=== PATIENT | female | born 1950 | race Caucasian/White ===

== ENCOUNTER → 2017-01-01 | Outpatient (CLI) | payer BC ==
[2016-01-12 22:00] VITALS: BP 104/55
--- NOTE | 2017-01-01 10:34 | KCIC ---
PROCEDURE MR of the right knee HISTORY Pain for about 1 year. Pain under the patella. There is some swelling. TECHNIQUE Standard noncontrast images are obtained. COMPARISON None FINDINGS Mild blunting and distortion of the posterior horn of the medial meniscus at the root. The medial meniscus body and posterior horn also appears small in size. No evidence of a lateral meniscal tear. Anterior and posterior cruciate ligaments are intact. Medial collateral ligament is intact. Iliotibial band unremarkable. Fibular collateral ligament, biceps femoris tendon and popliteus tendon are intact. Extensor mechanism is intact. No evidence of acute retinacular tear. Small joint effusion. No evidence of an osteochondral loose body. There is a small 50 percent deep narrow fissure of the median ridge of the patella, seen on 2 axial slices. Mild chondromalacia at the posterior lateral tibial plateau. Mild reactive or cystic type change at the proximal tibia. No significant bone lesion or acute fracture. No acute soft tissue injury. Small Chávez cyst There is some focal fatty signal just medial to the fibular neck, probably within the proximal soleus muscle, suggesting a small lipoma, measuring about 2.5 cm longitudinal. IMPRESSION 1. Small partial-thickness patellar cartilage fissure. 2. Mild blunting of the free margin of the posterior horn/root of the medial meniscus and overall small size of the medial meniscal body and posterior horn. Findings are compatible with a degenerative tear assuming there has not been prior meniscectomy. Electronically signed by: Himanshu Chan MD (Jan 01, 2017 10:32:29)
== END | disposition home or self-care (01) ==
LOC: KCIC MRI 07:52
PROVIDERS: ATTEND Orthopaedic Surgery
DX: M23.91 Unspecified internal derangement of right knee (principal)
CPT/HCPCS: 73721

== ENCOUNTER 2021-07-09 12:33 | Inpatient (IN) | payer MEDICARE, OTHER ==
[~2021-07-09] VITALS: Ht 170.2 cm; Wt 60.2 kg
[2021-07-09] MEDS ORDERED: IV NORMAL SALINE 1000ML BAG 1,000 ML IV ONE ×2 (13:00→21:00)
[2021-07-09] MEDS ORDERED: fentaNYL PF VIAL 100 MCG/2 ML VIAL IVP ONE (13:00)
[2021-07-09] MEDS ORDERED: NITROGLYCERIN SUBLINGUAL 0.4 MG BOTTLE OF 25. SL PRN ×2 (13:00→15:30)
[2021-07-09] MEDS ORDERED: ASPIRIN 325 MG TABLET PO ONE (13:00)
[2021-07-09] MEDS ORDERED: ACETAMINOPHEN 500 MG TABLET PO ONE (13:00)
[2021-07-09 13:08] LABS: HEMATOCRIT 23.5 % (36.0-47.0); HEMOGLOBIN 8.2 g/dL (12.0-15.5); MEAN CORPUSCULAR HEMOGLOBIN 34 pg (25-35); MEAN CORPUSCULAR HGB CONC 35 g/dL (31-37); MEAN CORPUSCULAR VOLUME 97 fL (79-100); PLATELET COUNT 99 x10^3/uL (140-400); RED BLOOD COUNT 2.42 x10^6/uL (3.50-5.40); RED CELL DISTRIBUTION WIDTH 13.2 % (11.5-14.5)
[2021-07-09 13:22] LABS: CALCIUM 8.8 mg/dL (8.5-10.1); CREATININE 0.7 mg/dL (0.6-1.0); POTASSIUM 3.4 mmol/L (3.5-5.1)
[2021-07-09 13:27] LABS: ALBUMIN 3.1 g/dL (3.4-5.0); MAGNESIUM 1.8 mg/dL (1.8-2.4); TOTAL BILIRUBIN 0.6 mg/dL (0.2-1.0); TOTAL PROTEIN 6.1 g/dL (6.4-8.2)
--- NOTE | 2021-07-09 13:28 | PHYS DOC ---
Past Medical History Past Medical History: Cancer (left breast cancer), Hypothyroid Additional Past Medical Histor: breast cancer Past Surgical History: Hysterectomy, Other Additional Past Surgical Histo: Left lumpectomy Smoking Status: Never Smoker Alcohol Use: None Drug Use: None General Adult EDM: Chief Complaint: CHEST PAIN HPI: HPI: Patient is a 70 year old female with a history of left breast cancer currently on chemo plus treatment was approximately 2 weeks ago who presents to the ED today with multiple complaints. Patient is complaining of generalized weakness, shortness of breath, poor appetite, generalized headache, generalized chest pain, unable to rate or describe any of her symptoms. She states everything is starting, symptoms for 3 days. Denies any fever, coughing or congestion. Review of Systems: Review of Systems: Constitutional: Reports generalized weakness, denies fever or chills. [] Eyes: Denies change in visual acuity. [] HENT: Denies nasal congestion or sore throat. [] Respiratory: Reports shortness of breath denies coughing Cardiovascular: Reports chest pain GI: Denies abdominal pain, nausea, vomiting, bloody stools or diarrhea. [] : Denies dysuria. [] Musculoskeletal: Denies back pain or joint pain. [] Integument: Denies rash. [] Neurologic: Reports headache, denies focal weakness or sensory changes. [] Psychiatric: Denies depression or anxiety. [] Heart Score: C/O Chest Pain: Yes HEART Score for Chest Pain: HEART Score for Chest Pain Response (Comments) Value History Slighlty/Non-Suspicious 0 ECG Normal 0 Age > 65 2 Risk Factors No Risk Factors 0 Troponin < Normal Limit 0 Total 2 Risk Factors: Risk Factors: DM, Current or recent (<one month) smoker, HTN, HLP, family history of CAD, obesity. Risk Scores: Score 0 - 3: 2.5% MACE over next 6 weeks - Discharge Home Score 4 - 6: 20.3% MACE over next 6 weeks - Admit for Clinical Observation Score 7 - 10: 72.7% MACE over next 6 weeks - Early Invasive Strategies Current Medications: Current Medications Medications (Trade) Dose Ordered Sig/Zenon Start Time Stop Time Status Last Admin Dose Admin Acetaminophen (Tylenol) 1,000 mg 1X ONCE 07/09/21 13:00 07/09/21 13:01 DC Aspirin (Makayla Aspirin) 325 mg 1X ONCE 07/09/21 13:00 07/09/21 13:01 DC Fentanyl Citrate (Fentanyl 2ml Vial) 50 mcg 1X ONCE 07/09/21 13:00 07/09/21 13:01 DC Nitroglycerin (Nitrostat) 0.4 mg PRN Q5MIN PRN 07/09/21 13:00 07/10/21 12:59 Sodium Chloride 1,000 ml @ 1,000 mls/hr 1X ONCE 07/09/21 13:00 07/09/21 13:59 Allergies: Allergies: Allergies Coded Allergies Type Severity Reaction Last Updated Verified codeine Allergy Intermediate 01/12/16 Yes Physical Exam: PE: Constitutional: Well developed, well nourished, no acute distress, non-toxic appearance. [] HENT: Normocephalic, atraumatic, bilateral external ears normal, oropharynx moist, no oral exudates, nose normal. [] Eyes: PERRLA, EOMI, conjunctiva normal, no discharge. [] Neck: Normal range of motion, no tenderness, supple, no stridor. [] Cardiovascular:Heart rate regular rhythm, no murmur [] Lungs & Thorax: Bilateral breath sounds clear to auscultation [] Abdomen: Bowel sounds normal, soft, no tenderness, no masses, no pulsatile masses. [] Skin: Warm, dry, no erythema, no rash. [] Back: No tenderness, no CVA tenderness. [] Extremities: No tenderness, no cyanosis, no clubbing, ROM intact, no edema. [] Neurologic: Alert and oriented X 3, normal motor function, normal sensory function, no focal deficits noted. [] Psychologic: Affect normal, judgement normal, mood normal. [] Current Patient Data: Labs: Laboratory Tests Test 07/09/21 12:45 White Blood Count 0.2 x10^3/uL (4.0-11.0) *L Red Blood Count 2.42 x10^6/uL (3.50-5.40) L Hemoglobin 8.2 g/dL (12.0-15.5) L Hematocrit 23.5 % (36.0-47.0) L Mean Corpuscular Volume 97 fL (79-100) Mean Corpuscular Hemoglobin 34 pg (25-35) Mean Corpuscular Hemoglobin Concent 35 g/dL (31-37) Red Cell Distribution Width 13.2 % (11.5-14.5) Platelet Count 99 x10^3/uL (140-400) L Platelet Estimate Pending Laboratory Tests 07/09/21 12:45 Vital Signs: Vital Signs Date Time Temp Pulse Resp B/P (MAP) Pulse Ox O2 Delivery O2 Flow Rate FiO2 07/09/21 12:34 99.9 81 24 117/64 (71) 99 Room Air 99.9 EKG: EK interpreted by Dr. Monroe sinus rhythm heart rate 85 no STEMI [] Radiology/Procedures: Radiology/Procedures: []PROCEDURE: CT ANGIOGRAPHY CHEST Exam Date: 07/09/2021 1:28 PM CTA CHEST Indication: Reason: shortness of breath / Spl. Instructions: OMNI 350 INJ 100 MLS / History: . TECHNIQUE: CT angiogram of the chest was performed following the administration of nonionic intravenous contrast for evaluation of pulmonary embolus. 3D MIPs were created and reviewed on an independent workstation to assist in diagnosis and clinical management. One or more of the following dose reduction techniques were utilized: *Automated exposure control (AEC) *Adjustment of mA and/or kV according to patient size *Use of iterative reconstruction technique *CT scan done according to ALARA, or ALARA/IMAGE GENTLY FINDINGS: There is adequate opacification of the pulmonary arteries. No central intravascular filling defects are appreciated. There is no evidence for central pulmonary embolus. The aorta is normal in caliber without evidence for dissection. Aortic calcifications are present. The heart is normal in size without pericardial effusion. No lymphadenopathy is seen. The central airways are patent. There is no focal consolidation, pleural effusion or pneumothorax. Biapical scarring is noted. Images of the upper abdomen demonstrate no focal abnormality. Degenerative changes are seen in the spine. IMPRESSION: No evidence for central pulmonary embolus. Electronically signed by: Maria L Kaye MD (07/09/2021 2:31 PM) [facility] DICTATED and SIGNED BY: MARIA L KAYE MD DATE: 07/09/21 [id number] 0 Course & Med Decision Making: Course & Med Decision Making Pertinent Labs and Imaging studies reviewed. (See chart for details) This is a 70-year-old female patient currently on chemotherapy for breast cancer last treatment 2 weeks ago presenting today complaining of generalized weakness, headache, shortness of breath, chest pain, symptoms for 3 days. Labs in the ED with a temperature of 99.9, heart rate 18, respiration 24 on room air, O2 sats 99%, blood pressure 117/64. CTA chest is negative. CBC with a WBC of 0.2, patient was put on neutropenic precautions. Hemoglobin 8.2 hematocrit 23.5. Lactic is normal. UA pending. Negative rapid Covid test Spoke with Dr. Pierre who accepted patient for admission routine consult placed for oncology Dragon Disclaimer: Dragon Disclaimer: This electronic medical record was generated, in whole or in part, using a voice recognition dictation system. Departure Departure Impression: Primary Impression: Fever Qualified Codes: R50.9 - Fever, unspecified Additional Impressions: Shortness of breath Chest pain Qualified Codes: R07.9 - Chest pain, unspecified Generalized weakness Neutropenia Qualified Codes: D70.9 - Neutropenia, unspecified Disposition: ADMITTED INPATIENT Condition: STABLE Referrals: RUEL AC MD (PCP) BERTIN MCLEAN [employer] Jul 09, 2021 13:27
[2021-07-09] MEDS ORDERED: IOHEXOL 350 MG/ML 100 ML VIAL. IV ONE (13:30)
[2021-07-09] MEDS ORDERED: CONTRAST GIVEN. MC PRN (13:30)
[2021-07-09 13:36] LABS: CREATINE KINASE 14 U/L (26-192)
--- NOTE | 2021-07-09 14:34 | RAD ---
Exam Date: 07/09/2021 1:28 PM CTA CHEST Indication: Reason: shortness of breath / Spl. Instructions: OMNI 350 INJ 100 MLS / History: . TECHNIQUE: CT angiogram of the chest was performed following the administration of nonionic intrave nous contrast for evaluation of pulmonary embolus. 3D MIPs were created and reviewed on an [employer] workstation to assist in diagnosis and clinical management. One or more of the following dose red uction techniques were utilized: *Automated exposure control (AEC) *Adjustment of mA and/or kV according to patient size *Use of iterative reconstruction technique *CT scan done according to ALARA, or ALARA/IMAGE GENTLY FINDINGS: There is adequate opacification of the pulmonary arteries. No central intravascular filling defects are appreciated. There is no evidence for central pulmonary embolus. The aorta is normal in caliber without evidence for dissection. Aortic calcifications are present. The heart is normal in size without pericardial effusion. No lymphadenopathy is seen. The central airways are patent. There is no focal consolidation, pleural effusion or pneumothorax. Biapical scarring is noted. Images of the upper abdomen demonstrate no focal abnormality. Degenerative changes are seen in the s pine. IMPRESSION: No evidence for central pulmonary embolus. Electronically signed by: Endy Kaye MD (07/09/2021 2:31 PM) [facility]
[2021-07-09 14:51] LABS: WHITE BLOOD COUNT 0.2 x10^3/uL (4.0-11.0)
[2021-07-09] MEDS ORDERED: ACETAMINOPHEN 325 MG TABLET. PO PRN (15:30)
[2021-07-09] MEDS ORDERED: ONDANSETRON PF 4 MG/2 ML VIAL. IVP PRN (15:30)
[2021-07-09] MEDS ORDERED: fentaNYL PF VIAL 100 MCG/2 ML VIAL IVP PRN (15:30)
[2021-07-09 16:31] LABS: BILIRUBIN,URINE NEGATIVE (NEG); CLARITY,URINE CLEAR; COLOR,URINE YELLOW; NITRITE,URINE NEGATIVE (NEG); PROTEIN,URINE NEGATIVE (NEG-TRACE); UROBILINOGEN,URINE 0.2 mg/dL (0.2 mg/dL)
[2021-07-09 16:38] LABS: BACTERIA,URINE 0 /HPF (0-FEW); RBC,URINE 0 /HPF (0-2); WBC,URINE 0 /HPF (0-4)
[2021-07-09 17:09] VITALS: BP 91/44
[2021-07-09] MEDS ORDERED: oxyCODONE/APAP 5/325 1 TAB TABLET PO PRN (17:15)
--- NOTE | 2021-07-09 18:48 | PDOC1 ---
History and Physical Date of Admission Date of Admission DATE: 07/09/21 TIME: 18:47 Source Source: Chart review, Patient History of Present Illness History of Present Illness Ms. Saunders is a 70 year old female admit with weakness and lethargy She has a history of left breast cancer currently on chemo plus treatment 9 days ago who presents to the ED today. she reports lumpectomy surgery and triple negattive status of her cancer. today she has shortness of breath, poor appetite, generalized headache, generalized chest pain. she is hungry as she hasnt eaten much today besides oatmeal and would like some spicy or [place] food. She has lost 10 lbs unintentionally with her cancer due to poo rintake these recent symptoms for 3 days. Denies any fever, she doesnt think she could have COVID becuase she has been careful and is vaccinated, but has mult appts at Cancer center Past Medical History Cardiovascular: No pertinent hx Heme/Onc: Cancer Past Surgical History Past Surgical History: No pertinent history Family History Family History: No Significant Social History Smoke: No ALCOHOL: none Drugs: None Current Problem List Problem List Problems Medical Problems: (1) Chest pain Status: Acute (2) Fever Status: Acute (3) Generalized weakness Status: Acute (4) Neutropenia Status: Acute (5) Shortness of breath Status: Acute Current Medications Current Medications Current Medications Aspirin (Makayla Aspirin) 325 mg 1X ONCE PO Last administered on 07/09/21at 13:47; Start 07/09/21 at 13:00; Stop 07/09/21 at 13:01; Status DC Nitroglycerin (Nitrostat) 0.4 mg PRN Q5MIN PRN SL CP RATING > 1/10; Start 07/09/21 at 13:00; Stop 07/10/21 at 12:59 Fentanyl Citrate (Fentanyl 2ml Vial) 50 mcg 1X ONCE IVP Last administered on 07/09/21at 13:48; Start 07/09/21 at 13:00; Stop 07/09/21 at 13:01; Status DC Acetaminophen (Tylenol) 1,000 mg 1X ONCE PO Last administered on 07/09/21at 13:47; Start 07/09/21 at 13:00; Stop 07/09/21 at 13:01; Status DC Sodium Chloride 1,000 ml @ 1,000 mls/hr 1X ONCE IV Last administered on at 13:51; Start 07/09/21 at 13:00; Stop 07/09/21 at 13:59; Status DC Iohexol (Omnipaque 350 Mg/ml) 100 ml 1X ONCE IV Last administered on 07/09/21at 14:00; Start 07/09/21 at 13:30; Stop 07/09/21 at 13:31; Status DC Info (CONTRAST GIVEN -- Rx MONITORING) 1 each PRN DAILY PRN MC SEE COMMENTS; Start 07/09/21 at 13:30; Stop 07/11/21 at 13:29 Ondansetron HCl (Zofran) 4 mg PRN Q8HRS PRN IVP NAUSEA/VOMITING; Start 07/09/21 at 15:30; Stop 07/10/21 at 15:29 Fentanyl Citrate (Fentanyl 2ml Vial) 50 mcg PRN Q1HR PRN IVP PAIN; Start 07/09/21 at 15:30; Stop 07/10/21 at 15:29 Acetaminophen (Tylenol) 650 mg PRN Q4HRS PRN PO FEVER > 100.3'F; Start 07/09/21 at 15:30; Stop 07/10/21 at 15:29 Nitroglycerin (Nitrostat) 0.4 mg PRN Q5MIN PRN SL CHEST PAIN; Start 07/09/21 at 15:30; Stop 07/10/21 at 15:29 Oxycodone/ Acetaminophen (Percocet 5/325) 1 tab PRN Q4HRS PRN PO PAIN; Start 07/09/21 at 17:15 Allergies Allergies: Coded Allergies: codeine (Verified Allergy, Intermediate, 01/12/16) ROS General: YES: Chills, Fatigue, Malaise PSYCHOLOGICAL ROS: No: Anxiety, Behavioral Disorder, Concentration difficultie, Decreased libido, Depression, Disorientation, Hallucinations, Hostility, Irritablity, Memory difficulties, Mood Swings, Obsessive thoughts, Physical abuse, Sexual abuse, Sleep disturbances, Suicidal ideation, Other Eyes: No Blurry vision, No Decreased vision, No Double vision, No Dry eyes, No Excessive tearing, No Eye Pain, No Itchy Eyes, No Loss of vision, No Photophobia, No Scotomata, No Uses contacts, No Uses glasses, No Other HEENT: YES: Heacaches; No: Visual Changes, Hearing change, Nasal congestion, Nasal discharge, Oral lesions, Sinus pain, Sore Throat, Epistaxis, Sneezing, Snoring, Tinnitus, Vertigo, Vocal changes, Other Respiratory: No: Cough, Hemoptysis, Orthopnea, Pleuritic Pain, Shortness of breath, SOB with excertion, Sputum Changes, Stridor, Tachypnea, Wheezing, Other Cardiovascular: No Chest Pain, No Palpitations, No Orthopnea, No Paroxysmal Noc. Dyspnea, No Edema, No Lt Headedness, No Other Gastrointestinal: Yes Nausea Genitourinary: No Dysuria, No Frequency, No Incontinence, No Hematuria, No Retention, No Discharge, No Urgency, No Pain, No Flank Pain, No Other, No , No , No , No , No , No , No Musculoskeletal: Yes Joint Stiffness; No Gait Disturbance, No Joint Pain, No Joint Swelling, No Muscle Pain, No Muscular Weakness, No Pain In:, No Swelling In:, No Other Neurological: No Behavorial Changes, No Bowel/Bladder ControlChng, No Confusion, No Dizziness, No Gait Disturbance, No Headaches, No Impaired Coord/balance, No Memory Loss, No Numbness/Tingling, No Seizures, No Speech Problems, No Tremors, No Visual Changes, No Weakness, No Other Skin: No Dry Skin, No Eczema, No Hair Changes, No Lumps, No Mole Changes, No Mottling, No Nail Changes, No Pruritus, No Rash, No Skin Lesion Changes, No Other, No Acne Physical Exam General: Alert, Oriented X3, No acute distress HEENT: Atraumatic, Mucous membr. moist/pink Lungs: Normal air movement Abdomen: Normal bowel sounds, Soft Extremities: No edema Skin: No rashes, No significant lesion Neuro: Normal speech, Normal tone Psych/Mental Status: Mental status NL, Mood NL Vitals Vitals Vital Signs Date Time Temp Pulse Resp B/P (MAP) Pulse Ox O2 Delivery O2 Flow Rate FiO2 07/09/21 17:09 99.4 77 18 91/44 (60) 99 Room Air 99.4 Labs Labs Laboratory Tests Test 07/09/21 12:45 07/09/21 14:25 07/09/21 15:40 White Blood Count 0.2 x10^3/uL (4.0-11.0) Red Blood Count 2.42 x10^6/uL (3.50-5.40) Hemoglobin 8.2 g/dL (12.0-15.5) Hematocrit 23.5 % (36.0-47.0) Mean Corpuscular Volume 97 fL (79-100) Mean Corpuscular Hemoglobin 34 pg (25-35) Mean Corpuscular Hemoglobin Concent 35 g/dL (31-37) Red Cell Distribution Width 13.2 % (11.5-14.5) Platelet Count 99 x10^3/uL (140-400) Sodium Level 135 mmol/L (136-145) Potassium Level 3.4 mmol/L (3.5-5.1) Chloride Level 102 mmol/L (98-107) Carbon Dioxide Level 25 mmol/L (21-32) Anion Gap 8 (6-14) Blood Urea Nitrogen 9 mg/dL (7-20) Creatinine 0.7 mg/dL (0.6-1.0) Estimated GFR (Cockcroft-Gault) 83.0 BUN/Creatinine Ratio 13 (6-20) Glucose Level 98 mg/dL (70-99) Lactic Acid Level 1.4 mmol/L (0.4-2.0) Calcium Level 8.8 mg/dL (8.5-10.1) Magnesium Level 1.8 mg/dL (1.8-2.4) Total Bilirubin 0.6 mg/dL (0.2-1.0) Aspartate Amino Transf (AST/SGOT) 8 U/L (15-37) Alanine Aminotransferase (ALT/SGPT) 23 U/L (14-59) Alkaline Phosphatase 89 U/L (46-116) Creatine Kinase 14 U/L (26-192) Creatine Kinase MB (Mass) < 0.5 ng/mL (0.0-3.6) Creatine Kinase MB Relative Index % (0-4) Troponin I Quantitative < 0.017 ng/mL (0.000-0.055) MB-Rgq-Y-Type Natriuretic Peptide 314 pg/mL (0-124) Total Protein 6.1 g/dL (6.4-8.2) Albumin 3.1 g/dL (3.4-5.0) Albumin/Globulin Ratio 1.0 (1.0-1.7) Procalcitonin < 0.10 ng/mL (0.00-0.10) SARS-CoV-2 Antigen (Rapid) Negative (NEGATIVE) Urine Collection Type Unknown Urine Color Yellow Urine Clarity Clear Urine pH 8.0 (<5.0-8.0) Urine Specific [place] 1.025 (1.000-1.030) Urine Protein Negative mg/dL (NEG-TRACE) Urine Glucose (UA) Negative mg/dL (NEG) Urine Ketones (Stick) Negative mg/dL (NEG) Urine Blood Negative (NEG) Urine Nitrite Negative (NEG) Urine Bilirubin Negative (NEG) Urine Urobilinogen Dipstick 0.2 mg/dL (0.2 mg/dL) Urine Leukocyte Esterase Negative (NEG) Urine RBC 0 /HPF (0-2) Urine WBC 0 /HPF (0-4) Urine Squamous Epithelial Cells Few /LPF Urine Bacteria 0 /HPF (0-FEW) Laboratory Tests Test 07/09/21 12:45 07/09/21 14:25 07/09/21 15:40 White Blood Count 0.2 x10^3/uL (4.0-11.0) Red Blood Count 2.42 x10^6/uL (3.50-5.40) Hemoglobin 8.2 g/dL (12.0-15.5) Hematocrit 23.5 % (36.0-47.0) Mean Corpuscular Volume 97 fL (79-100) Mean Corpuscular Hemoglobin 34 pg (25-35) Mean Corpuscular Hemoglobin Concent 35 g/dL (31-37) Red Cell Distribution Width 13.2 % (11.5-14.5) Platelet Count 99 x10^3/uL (140-400) Sodium Level 135 mmol/L (136-145) Potassium Level 3.4 mmol/L (3.5-5.1) Chloride Level 102 mmol/L (98-107) Carbon Dioxide Level 25 mmol/L (21-32) Anion Gap 8 (6-14) Blood Urea Nitrogen 9 mg/dL (7-20) Creatinine 0.7 mg/dL (0.6-1.0) Estimated GFR (Cockcroft-Gault) 83.0 BUN/Creatinine Ratio 13 (6-20) Glucose Level 98 mg/dL (70-99) Lactic Acid Level 1.4 mmol/L (0.4-2.0) Calcium Level 8.8 mg/dL (8.5-10.1) Magnesium Level 1.8 mg/dL (1.8-2.4) Total Bilirubin 0.6 mg/dL (0.2-1.0) Aspartate Amino Transf (AST/SGOT) 8 U/L (15-37) Alanine Aminotransferase (ALT/SGPT) 23 U/L (14-59) Alkaline Phosphatase 89 U/L (46-116) Creatine Kinase 14 U/L (26-192) Creatine Kinase MB (Mass) < 0.5 ng/mL (0.0-3.6) Creatine Kinase MB Relative Index % (0-4) Troponin I Quantitative < 0.017 ng/mL (0.000-0.055) YQ-Ulx-C-Type Natriuretic Peptide 314 pg/mL (0-124) Total Protein 6.1 g/dL (6.4-8.2) Albumin 3.1 g/dL (3.4-5.0) Albumin/Globulin Ratio 1.0 (1.0-1.7) Procalcitonin < 0.10 ng/mL (0.00-0.10) SARS-CoV-2 Antigen (Rapid) Negative (NEGATIVE) Urine Collection Type Unknown Urine Color Yellow Urine Clarity Clear Urine pH 8.0 (<5.0-8.0) Urine Specific [place] 1.025 (1.000-1.030) Urine Protein Negative mg/dL (NEG-TRACE) Urine Glucose (UA) Negative mg/dL (NEG) Urine Ketones (Stick) Negative mg/dL (NEG) Urine Blood Negative (NEG) Urine Nitrite Negative (NEG) Urine Bilirubin Negative (NEG) Urine Urobilinogen Dipstick 0.2 mg/dL (0.2 mg/dL) Urine Leukocyte Esterase Negative (NEG) Urine RBC 0 /HPF (0-2) Urine WBC 0 /HPF (0-4) Urine Squamous Epithelial Cells Few /LPF Urine Bacteria 0 /HPF (0-FEW) VTE Prophylaxis Ordered VTE Prophylaxis Devices: No VTE Pharmacological Prophylaxi: Yes Assessment/Plan Assessment/Plan lethargy, weakness, admit for COVId - PUI rule out neutropenia, s/p chemo for breast cancer relative hypotension, IV fluid given, will continue Justifications for Admission Other Justification DELROY ANDRADE MD Jul 09, 2021 18:47
[2021-07-09 19:29] VITALS: BP 85/40
[2021-07-09] MEDS ORDERED: POTASSIUM CHLORIDE 20 MEQ TABLET.ER. PO ONE (21:00)
--- NOTE | 2021-07-09 21:22 | NUR ---
RECEIVED ORDER FROM DR ANDRADE FOR PREPERATION H, PER PT REQUEST. LCRN
[2021-07-09 22:27] VITALS: BP 101/48
[2021-07-09] MEDS: PHENYLEPH/MINERAL OIL/PETROLAT RECTAL OINTMENT TUBE. RC PRN (23:15)
[2021-07-09] MEDS: ENOXAPARIN 40 MG/0.4 ML SYRINGE. SQ SCH (23:37)
[2021-07-10 03:02] VITALS: BP 111/56
[2021-07-10 06:44] LABS: BASO % 0 % (0-3); EOS % 2 % (0-3); LYMPH # 0.1 x10^3/uL (1.0-4.8); LYMPH % 70 % (24-48); MEAN CORPUSCULAR HEMOGLOBIN 35 pg (25-35); MEAN CORPUSCULAR HGB CONC 35 g/dL (31-37); MEAN CORPUSCULAR VOLUME 98 fL (79-100); MONO % 11 % (0-9); NEUT % 17 % (31-73); PLATELET COUNT 64 x10^3/uL (140-400); RED BLOOD COUNT 2.02 x10^6/uL (3.50-5.40)
[2021-07-10 07:00] VITALS: BP 106/50
[2021-07-10 07:06] LABS: ALBUMIN 2.4 g/dL (3.4-5.0); ALBUMIN/GLOBULIN RATIO 0.9 (1.0-1.7); CALCIUM 7.9 mg/dL (8.5-10.1); CREATININE 0.6 mg/dL (0.6-1.0); GFR 99.1; POTASSIUM 3.6 mmol/L (3.5-5.1); TOTAL BILIRUBIN 0.3 mg/dL (0.2-1.0); TOTAL PROTEIN 5.1 g/dL (6.4-8.2)
[2021-07-10 07:30] LABS: HEMATOCRIT 19.7 % (36.0-47.0)
[2021-07-10 07:31] LABS: WHITE BLOOD COUNT 0.2 x10^3/uL (4.0-11.0)
[2021-07-10 10:39] VITALS: BP 104/53
[2021-07-10] MEDS ORDERED: DOCUSATE SODIUM 100 MG CAPSULE. PO PRN (11:00)
[2021-07-10] MEDS ORDERED: POLYETHYLENE GLYCOL 3350 17 GM PACKET. PO PRN (11:00)
[2021-07-10] MEDS ORDERED: IBUPROFEN 200 MG TABLET. PO ONE (12:15)
--- NOTE | 2021-07-10 12:48 | PDOC ---
[facility] PROGRESS NOTE Date of Service DOS: DATE: 07/10/21 TIME: 12:44 Chief Complaint Chief Complaint lethargy, weakness, SIRS, sepsis, neutropenia, with fevert this AM, start cefepime, IV , s/p chemo for breast cancer, now wiht pancytopenia, post plantinum chemo hypotension, better rectal pain, constipation and hemorrhoid pain weakness, was PUI for COVID, is negative, History of Present Illness History of Present Illness was very cold thsi AM, she reports this is usual for her after chemo, but temp 100.3, white count still terrible, got neupogen last week, will consutl heme, may benefit from other dose, cefepime started bowel regimen and roid cream and tucks pads Vitals/I&O Vitals/I&O: Vital Signs Date Time Temp Pulse Resp B/P (MAP) Pulse Ox O2 Delivery O2 Flow Rate FiO2 07/10/21 10:39 99.7 90 16 104/53 (70) 98 Room Air 99.7 I & O 07/09/21 07/09/21 07/10/21 15:00 23:00 07:00 Intake Total 200 ml 0 ml Output Total 800 ml 300 ml Balance -600 ml -300 ml Physical Exam General: Alert, Oriented X3, Cooperative, mild distress Heart: Regular rate Abdomen: Normal bowel sounds, Soft Extremities: No edema Skin: No rashes, No significant lesion Labs Labs: Laboratory Tests Test 07/09/21 12:45 07/09/21 14:25 07/09/21 15:40 07/10/21 05:30 White Blood Count 0.2 x10^3/uL (4.0-11.0) 0.2 x10^3/uL (4.0-11.0) Red Blood Count 2.42 x10^6/uL (3.50-5.40) 2.02 x10^6/uL (3.50-5.40) Hemoglobin 8.2 g/dL (12.0-15.5) 7.0 g/dL (12.0-15.5) Hematocrit 23.5 % (36.0-47.0) 19.7 % (36.0-47.0) Mean Corpuscular Volume 97 fL (79-100) 98 fL (79-100) Mean Corpuscular Hemoglobin 34 pg (25-35) 35 pg (25-35) Mean Corpuscular Hemoglobin Concent 35 g/dL (31-37) 35 g/dL (31-37) Red Cell Distribution Width 13.2 % (11.5-14.5) 14.0 % (11.5-14.5) Platelet Count 99 x10^3/uL (140-400) 64 x10^3/uL (140-400) Sodium Level 135 mmol/L (136-145) 135 mmol/L (136-145) Potassium Level 3.4 mmol/L (3.5-5.1) 3.6 mmol/L (3.5-5.1) Chloride Level 102 mmol/L (98-107) 105 mmol/L (98-107) Carbon Dioxide Level 25 mmol/L (21-32) 23 mmol/L (21-32) Anion Gap 8 (6-14) 7 (6-14) Blood Urea Nitrogen 9 mg/dL (7-20) 6 mg/dL (7-20) Creatinine 0.7 mg/dL (0.6-1.0) 0.6 mg/dL (0.6-1.0) Estimated GFR (Cockcroft-Gault) 83.0 99.1 BUN/Creatinine Ratio 13 (6-20) 10 (6-20) Glucose Level 98 mg/dL (70-99) 100 mg/dL (70-99) Lactic Acid Level 1.4 mmol/L (0.4-2.0) Calcium Level 8.8 mg/dL (8.5-10.1) 7.9 mg/dL (8.5-10.1) Magnesium Level 1.8 mg/dL (1.8-2.4) Total Bilirubin 0.6 mg/dL (0.2-1.0) 0.3 mg/dL (0.2-1.0) Aspartate Amino Transf (AST/SGOT) 8 U/L (15-37) 17 U/L (15-37) Alanine Aminotransferase (ALT/SGPT) 23 U/L (14-59) 29 U/L (14-59) Alkaline Phosphatase 89 U/L (46-116) 84 U/L (46-116) Creatine Kinase 14 U/L (26-192) Creatine Kinase MB (Mass) < 0.5 ng/mL (0.0-3.6) Creatine Kinase MB Relative Index % (0-4) Troponin I Quantitative < 0.017 ng/mL (0.000-0.055) AN-Mxf-T-Type Natriuretic Peptide 314 pg/mL (0-124) Total Protein 6.1 g/dL (6.4-8.2) 5.1 g/dL (6.4-8.2) Albumin 3.1 g/dL (3.4-5.0) 2.4 g/dL (3.4-5.0) Albumin/Globulin Ratio 1.0 (1.0-1.7) 0.9 (1.0-1.7) Procalcitonin < 0.10 ng/mL (0.00-0.10) SARS-CoV-2 RNA (PARAMJIT) Negative (Negative) SARS-CoV-2 Antigen (Rapid) Negative (NEGATIVE) Urine Collection Type Unknown Urine Color Yellow Urine Clarity Clear Urine pH 8.0 (<5.0-8.0) Urine Specific [place] 1.025 (1.000-1.030) Urine Protein Negative mg/dL (NEG-TRACE) Urine Glucose (UA) Negative mg/dL (NEG) Urine Ketones (Stick) Negative mg/dL (NEG) Urine Blood Negative (NEG) Urine Nitrite Negative (NEG) Urine Bilirubin Negative (NEG) Urine Urobilinogen Dipstick 0.2 mg/dL (0.2 mg/dL) Urine Leukocyte Esterase Negative (NEG) Urine RBC 0 /HPF (0-2) Urine WBC 0 /HPF (0-4) Urine Squamous Epithelial Cells Few /LPF Urine Bacteria 0 /HPF (0-FEW) Neutrophils (%) (Auto) 17 % (31-73) Lymphocytes (%) (Auto) 70 % (24-48) Monocytes (%) (Auto) 11 % (0-9) Eosinophils (%) (Auto) 2 % (0-3) Basophils (%) (Auto) 0 % (0-3) Neutrophils # (Auto) 0.0 x10^3/uL (1.8-7.7) Lymphocytes # (Auto) 0.1 x10^3/uL (1.0-4.8) Monocytes # (Auto) 0.0 x10^3/uL (0.0-1.1) Eosinophils # (Auto) 0.0 x10^3/uL (0.0-0.7) Basophils # (Auto) 0.0 x10^3/uL (0.0-0.2) Review of Systems Review of Systems: rectal pain weakness, poor po intake cold, not rigors, + chills Assessment and Plan Assessmemt and Plan Problems Medical Problems: (1) Chest pain Status: Acute (2) Fever Status: Acute (3) Generalized weakness Status: Acute (4) Neutropenia Status: Acute (5) Shortness of breath Status: Acute Comment Review of Relevant I have reviewed the following items jozef (where applicable) has been applied. Medications: Current Medications Medications (Trade) Dose Ordered Sig/Zenon Route PRN Reason Start Time Stop Time Status Last Admin Dose Admin Aspirin (Makayla Aspirin) 325 mg 1X ONCE PO 07/09/21 13:00 07/09/21 13:01 DC 07/09/21 13:47 Fentanyl Citrate (Fentanyl 2ml Vial) 50 mcg 1X ONCE IVP 07/09/21 13:00 07/09/21 13:01 DC 07/09/21 13:48 Acetaminophen (Tylenol) 1,000 mg 1X ONCE PO 07/09/21 13:00 07/09/21 13:01 DC 07/09/21 13:47 Sodium Chloride 1,000 ml @ 1,000 mls/hr 1X ONCE IV 07/09/21 13:00 07/09/21 13:59 DC 07/09/21 13:51 Iohexol (Omnipaque 350 Mg/ml) 100 ml 1X ONCE IV 07/09/21 13:30 07/09/21 13:31 DC 07/09/21 14:00 Sodium Chloride 1,000 ml @ 100 mls/hr 1X ONCE IV 07/09/21 21:00 07/10/21 07:00 DC 07/09/21 23:39 Potassium Chloride (Klor-Con) 40 meq 1X ONCE PO 07/09/21 21:00 07/09/21 21:01 DC 07/09/21 23:36 Enoxaparin Sodium (Lovenox 40mg Syringe) 40 mg Q24H SQ 07/09/21 21:00 07/09/21 23:37 Phenyleph/Shark Oil/Min Oil/Petrol (Preparation H) 1 giancarlo PRN QID PRN RC RECTAL PAIN 07/09/21 23:00 07/09/21 23:15 Ibuprofen (Motrin) 600 mg 1X ONCE PO 07/10/21 12:15 07/10/21 12:16 DC 07/10/21 12:13 Justifications for Admission Other Justification DELROY ANDRADE MD Jul 10, 2021 12:48
[2021-07-10] MEDS: POLYETHYLENE GLYCOL 3350 17 GM PACKET. PO SCH (13:13)
[2021-07-10] MEDS: FILGRASTIM 300 MCG/ML SQ SCH (13:13)
[2021-07-10] MEDS: CEFEPIME HCL IV Push 2 GM VIAL. IVP SCH ×2 (13:14→21:20)
[2021-07-10] MEDS: DOCUSATE SODIUM 100 MG CAPSULE. PO SCH (13:14)
[2021-07-10 15:00] VITALS: BP 101/55
[2021-07-10 19:20] VITALS: BP 124/56
[2021-07-10] MEDS: IBUPROFEN 400 MG TABLET. PO PRN (21:19)
[2021-07-10] MEDS: ENOXAPARIN 40 MG/0.4 ML SYRINGE. SQ SCH (21:19)
[2021-07-10 22:49] VITALS: BP 111/45
[2021-07-11 03:12] VITALS: BP 99/45
[2021-07-11 07:00] VITALS: BP 86/49
[2021-07-11 07:32] LABS: BASO % 3 % (0-3); EOS % 0 % (0-3); HEMATOCRIT 21.5 % (36.0-47.0); HEMOGLOBIN 7.5 g/dL (12.0-15.5); LYMPH # 0.1 x10^3/uL (1.0-4.8); LYMPH % 27 % (24-48); MEAN CORPUSCULAR HEMOGLOBIN 34 pg (25-35); MEAN CORPUSCULAR HGB CONC 35 g/dL (31-37); MEAN CORPUSCULAR VOLUME 98 fL (79-100); MONO % 8 % (0-9); NEUT # 0.3 x10^3/uL (1.8-7.7); NEUT % 61 % (31-73); PLATELET COUNT 57 x10^3/uL (140-400); RED BLOOD COUNT 2.19 x10^6/uL (3.50-5.40); RED CELL DISTRIBUTION WIDTH 14.1 % (11.5-14.5)
[2021-07-11 07:42] LABS: WHITE BLOOD COUNT 0.5 x10^3/uL (4.0-11.0)
[2021-07-11 07:54] LABS: ALBUMIN 2.8 g/dL (3.4-5.0); ALBUMIN/GLOBULIN RATIO 0.9 (1.0-1.7); CALCIUM 8.5 mg/dL (8.5-10.1); CREATININE 0.7 mg/dL (0.6-1.0); POTASSIUM 3.3 mmol/L (3.5-5.1); TOTAL BILIRUBIN 0.4 mg/dL (0.2-1.0); TOTAL PROTEIN 5.9 g/dL (6.4-8.2)
[2021-07-11] MEDS: DOCUSATE SODIUM 100 MG CAPSULE. PO SCH (08:48)
[2021-07-11] MEDS: IBUPROFEN 400 MG TABLET. PO PRN ×2 (08:48→17:15)
[2021-07-11] MEDS: POLYETHYLENE GLYCOL 3350 17 GM PACKET. PO SCH (09:00)
[2021-07-11 10:44] VITALS: BP 98/58
[2021-07-11] MEDS: CEFEPIME HCL IV Push 2 GM VIAL. IVP SCH ×2 (11:10→23:14)
[2021-07-11] MEDS ORDERED: POTASSIUM CHLORIDE 20 MEQ TABLET.ER. PO ONE (12:00)
[2021-07-11] MEDS ORDERED: PHENYLEPH/MINERAL OIL/PETROLAT RECTAL OINTMENT TUBE. RC PRN (12:30)
[2021-07-11] MEDS ORDERED: LIDO:MAALOX:BENADRYL 1:1:1 180 ML BOTTLE. PO PRN (12:30)
[2021-07-11] MEDS ORDERED: HYDROCORTISONE 2.5% RECTAL CREAM 30GM TUBE. RC PRN (12:45)
--- NOTE | 2021-07-11 14:16 | PDOC ---
[facility] PROGRESS NOTE Date of Service DOS: DATE: 07/11/21 TIME: 14:09 Chief Complaint Chief Complaint lethargy, weakness, SIRS, septic shock Neutropenic fever Pancytopenia Hypotension rectal pain, constipation and hemorrhoid pain Hypokalemia, Severe protein malnutrition Status post chemotherapy for breast cancer, triple negative Anemia of chronic disease History of Present Illness History of Present Illness was very cold thsi AM, she reports this is usual for her after chemo, but temp 100.3, white count still terrible, got neupogen last week, will consutl heme, may benefit from other dose, cefepime started bowel regimen and roid cream and tucks pads 07/11/2021 No acute events overnight. Afebrile in last 24 hours. WBC increased to 0.5. Patient still on Neupogen. Patient was started on cefepime. Pending oncology evaluation. Continue with ibuprofen for hemorrhoidal pain. Patient's chart, labs, images were reviewed and discussed with RN In addition to my E/M visit, advance care planning done with A total time of 20 minutes was spent from 12:00 to 1230 face to face in discussion with the patient regarding their goals of care, CODE STATUS. Vitals/I&O Vitals/I&O: Vital Signs Date Time Temp Pulse Resp B/P (MAP) Pulse Ox O2 Delivery O2 Flow Rate FiO2 07/11/21 10:44 98.0 87 18 98/58 (71) 99 Room Air 98.0 I & O 07/10/21 07/10/21 07/11/21 15:00 23:00 07:00 Intake Total 360 ml 200 ml 180 ml Balance 360 ml 200 ml 180 ml Physical Exam General: Alert, Oriented X3, Cooperative, mild distress Heart: Regular rate Abdomen: Normal bowel sounds, Soft Extremities: No edema Skin: No rashes, No significant lesion Labs Labs: Laboratory Tests Test 07/11/21 07:10 White Blood Count 0.5 x10^3/uL (4.0-11.0) Red Blood Count 2.19 x10^6/uL (3.50-5.40) Hemoglobin 7.5 g/dL (12.0-15.5) Hematocrit 21.5 % (36.0-47.0) Mean Corpuscular Volume 98 fL (79-100) Mean Corpuscular Hemoglobin 34 pg (25-35) Mean Corpuscular Hemoglobin Concent 35 g/dL (31-37) Red Cell Distribution Width 14.1 % (11.5-14.5) Platelet Count 57 x10^3/uL (140-400) Neutrophils (%) (Auto) 61 % (31-73) Lymphocytes (%) (Auto) 27 % (24-48) Monocytes (%) (Auto) 8 % (0-9) Eosinophils (%) (Auto) 0 % (0-3) Basophils (%) (Auto) 3 % (0-3) Neutrophils # (Auto) 0.3 x10^3/uL (1.8-7.7) Lymphocytes # (Auto) 0.1 x10^3/uL (1.0-4.8) Monocytes # (Auto) 0.0 x10^3/uL (0.0-1.1) Eosinophils # (Auto) 0.0 x10^3/uL (0.0-0.7) Basophils # (Auto) 0.0 x10^3/uL (0.0-0.2) Sodium Level 140 mmol/L (136-145) Potassium Level 3.3 mmol/L (3.5-5.1) Chloride Level 106 mmol/L (98-107) Carbon Dioxide Level 23 mmol/L (21-32) Anion Gap 11 (6-14) Blood Urea Nitrogen 6 mg/dL (7-20) Creatinine 0.7 mg/dL (0.6-1.0) Estimated GFR (Cockcroft-Gault) 83.0 BUN/Creatinine Ratio 9 (6-20) Glucose Level 90 mg/dL (70-99) Calcium Level 8.5 mg/dL (8.5-10.1) Total Bilirubin 0.4 mg/dL (0.2-1.0) Aspartate Amino Transf (AST/SGOT) 14 U/L (15-37) Alanine Aminotransferase (ALT/SGPT) 37 U/L (14-59) Alkaline Phosphatase 97 U/L (46-116) Total Protein 5.9 g/dL (6.4-8.2) Albumin 2.8 g/dL (3.4-5.0) Albumin/Globulin Ratio 0.9 (1.0-1.7) Assessment and Plan Assessmemt and Plan Problems Medical Problems: (1) Chest pain Status: Acute (2) Fever Status: Acute (3) Generalized weakness Status: Acute (4) Neutropenia Status: Acute (5) Shortness of breath Status: Acute Comment Review of Relevant I have reviewed the following items jozef (where applicable) has been applied. Medications: Current Medications Medications (Trade) Dose Ordered Sig/Zenon Route PRN Reason Start Time Stop Time Status Last Admin Dose Admin Potassium Chloride (Klor-Con) 40 meq 1X ONCE PO 07/11/21 12:00 07/11/21 12:01 DC 07/11/21 13:27 Justifications for Admission Other Justification MAXIM TOPETE MD Jul 11, 2021 14:16
[2021-07-11 15:19] VITALS: BP 97/47
[2021-07-11] MEDS: PHENYLEPH/MINERAL OIL/PETROLAT RECTAL OINTMENT TUBE. RC PRN (17:15)
[2021-07-11 19:30] VITALS: BP 98/43
[2021-07-11 22:45] VITALS: BP 92/54
[2021-07-11] MEDS: ENOXAPARIN 40 MG/0.4 ML SYRINGE. SQ SCH (23:14)
[2021-07-11] MEDS: FILGRASTIM 300 MCG/ML SQ SCH (23:16)
[2021-07-12 03:45] VITALS: BP 94/46
[2021-07-12] MEDS: IBUPROFEN 400 MG TABLET. PO PRN ×2 (04:37→08:39)
[2021-07-12 07:00] VITALS: BP 82/50
[2021-07-12] MEDS ORDERED: PANTOPRAZOLE 40 MG TABLET.DR. PO SCH (07:30)
[2021-07-12] MEDS: CEFEPIME HCL IV Push 2 GM VIAL. IVP SCH (08:20)
[2021-07-12] MEDS: DOCUSATE SODIUM 100 MG CAPSULE. PO SCH (08:21)
[2021-07-12] MEDS: POLYETHYLENE GLYCOL 3350 17 GM PACKET. PO SCH (08:31)
[2021-07-12 08:57] LABS: BASO % 1 % (0-3); EOS % 0 % (0-3); HEMOGLOBIN 7.5 g/dL (12.0-15.5); LYMPH # 0.2 x10^3/uL (1.0-4.8); LYMPH % 11 % (24-48); MEAN CORPUSCULAR HEMOGLOBIN 35 pg (25-35); MEAN CORPUSCULAR HGB CONC 34 g/dL (31-37); MEAN CORPUSCULAR VOLUME 102 fL (79-100); MONO # 0.1 x10^3/uL (0.0-1.1); MONO % 7 % (0-9); NEUT # 1.3 x10^3/uL (1.8-7.7); NEUT % 80 % (31-73); PLATELET COUNT 59 x10^3/uL (140-400); RED BLOOD COUNT 2.16 x10^6/uL (3.50-5.40); RED CELL DISTRIBUTION WIDTH 14.4 % (11.5-14.5)
[2021-07-12 09:02] LABS: CALCIUM 8.3 mg/dL (8.5-10.1); CREATININE 0.7 mg/dL (0.6-1.0); PHOSPHORUS 1.3 mg/dL (2.6-4.7)
[2021-07-12 09:08] LABS: WHITE BLOOD COUNT 1.6 x10^3/uL (4.0-11.0)
[2021-07-12 11:00] VITALS: BP 98/52
--- NOTE | 2021-07-12 11:50 | EKG ---
[facility] [address] [place] [address] Test Date: 2021-07-09 Test Time: 12:41:39 Pat Name: LULY MCGILL Department: Room: Gender: F [employer]er: : [id number] Requested By: BERTIN MCLEAN Order Number: [id number] Reading MD: Measurements Intervals [place] Rate: 85 P: 66 RI: 138 QRS: 52 QRSD: 78 T: 51 QT: 374 QTc: 451 Interpretive Statements SINUS RHYTHM NORMAL ECG RI6.02 No previous ECG available for comparison
[2021-07-12] MEDS ORDERED: SODIUM PHOSPHATE 20 MMOL in IV NORMAL SALINE 250ML 250 ML IV ONE (12:30)
--- NOTE | 2021-07-12 12:30 | PDOC ---
[facility] PROGRESS NOTE Date of Service DOS: DATE: 07/12/21 TIME: 12:28 Chief Complaint Chief Complaint lethargy, weakness, SIRS, septic shock Neutropenic fever Pancytopenia Hypotension rectal pain, constipation and hemorrhoid pain Hypokalemia, Severe protein malnutrition Status post chemotherapy for breast cancer, triple negative Anemia of chronic disease History of Present Illness History of Present Illness was very cold this AM, she reports this is usual for her after chemo, but temp 100.3, white count still terrible, got neupogen last week, will consutl heme, may benefit from other dose, cefepime started bowel regimen and roid cream and tucks pads 07/11/2021 No acute events overnight. Afebrile in last 24 hours. WBC increased to 0.5. Patient still on Neupogen. Patient was started on cefepime. Pending oncology evaluation. Continue with ibuprofen for hemorrhoidal pain. Patient's chart, labs, images were reviewed and discussed with RN In addition to my E/M visit, advance care planning done with A total time of 20 minutes was spent from 12:00 to 1230 face to face in discussion with the patient regarding their goals of care, CODE STATUS. 07/12/2021 No acute events overnight. Patient afebrile last 24 hours. WBC improved to 1.5. Continues to have hemorrhoidal pain not improved. Oncology consulted and pending evaluation. Phosphorus is low at 1.3 will replace with sodium phosphate. Patient 's chart, labs, images were reviewed and discussed with RN Vitals/I&O Vitals/I&O: Vital Signs Date Time Temp Pulse Resp B/P (MAP) Pulse Ox O2 Delivery O2 Flow Rate FiO2 07/12/21 08:00 Room Air 07/12/21 07:00 97.6 89 16 82/50 (61) 100 97.6 I & O 07/11/21 07/11/21 07/12/21 15:00 23:00 07:00 Intake Total 840 ml 360 ml 300 ml Balance 840 ml 360 ml 300 ml Physical Exam General: Alert, Oriented X3, Cooperative, mild distress Heart: Regular rate Abdomen: Normal bowel sounds, Soft Extremities: No edema Skin: No rashes, No significant lesion Labs Labs: Laboratory Tests Test 07/12/21 08:40 White Blood Count 1.6 x10^3/uL (4.0-11.0) Red Blood Count 2.16 x10^6/uL (3.50-5.40) Hemoglobin 7.5 g/dL (12.0-15.5) Hematocrit 22.0 % (36.0-47.0) Mean Corpuscular Volume 102 fL (79-100) Mean Corpuscular Hemoglobin 35 pg (25-35) Mean Corpuscular Hemoglobin Concent 34 g/dL (31-37) Red Cell Distribution Width 14.4 % (11.5-14.5) Platelet Count 59 x10^3/uL (140-400) Neutrophils (%) (Auto) 80 % (31-73) Lymphocytes (%) (Auto) 11 % (24-48) Monocytes (%) (Auto) 7 % (0-9) Eosinophils (%) (Auto) 0 % (0-3) Basophils (%) (Auto) 1 % (0-3) Neutrophils # (Auto) 1.3 x10^3/uL (1.8-7.7) Lymphocytes # (Auto) 0.2 x10^3/uL (1.0-4.8) Monocytes # (Auto) 0.1 x10^3/uL (0.0-1.1) Eosinophils # (Auto) 0.0 x10^3/uL (0.0-0.7) Basophils # (Auto) 0.0 x10^3/uL (0.0-0.2) Sodium Level 142 mmol/L (136-145) Potassium Level 4.0 mmol/L (3.5-5.1) Chloride Level 109 mmol/L (98-107) Carbon Dioxide Level 23 mmol/L (21-32) Anion Gap 10 (6-14) Blood Urea Nitrogen 5 mg/dL (7-20) Creatinine 0.7 mg/dL (0.6-1.0) Estimated GFR (Cockcroft-Gault) 83.0 Glucose Level 97 mg/dL (70-99) Calcium Level 8.3 mg/dL (8.5-10.1) Phosphorus Level 1.3 mg/dL (2.6-4.7) Magnesium Level 2.0 mg/dL (1.8-2.4) Assessment and Plan Assessmemt and Plan Problems Medical Problems: (1) Chest pain Status: Acute (2) Fever Status: Acute (3) Generalized weakness Status: Acute (4) Neutropenia Status: Acute (5) Shortness of breath Status: Acute Comment Review of Relevant I have reviewed the following items jozef (where applicable) has been applied. Medications: Current Medications Medications (Trade) Dose Ordered Sig/Zenon Route PRN Reason Start Time Stop Time Status Last Admin Dose Admin Pantoprazole Sodium (Protonix) 40 mg DAILYAC PO 07/12/21 07:30 07/12/21 08:20 Hydrocortisone (Proctosol-Hc) 1 giancarlo PRN Q6HRS PRN RC RECTAL PAIN 07/11/21 12:45 07/11/21 17:15 Justifications for Admission Other Justification MAXIM TOPETE MD Jul 12, 2021 12:30
[2021-07-12 15:00] VITALS: BP 102/46
[2021-07-12] MEDS ORDERED: HYDR28.337 RC (15:26)
[2021-07-12] MEDS ORDERED: PANT40TA77 PO (15:26)
--- NOTE | 2021-07-12 15:29 | DISCH ---
DISCHARGE INSTRUCTIONS Condition on Discharge Condition on Discharge: Stable (Please call your oncologist to see if you need to continue Neupogen injections) Activity After Discharge Activity Instructions for Disc: Resume previous activity Lifting Instructions after Dis: No pulling or pushing, Do not lift >10 pounds Exercise Instruction after Dis: Walk 15 min, 3 x per day Driving Instructions after Dis: Do not drive today Diet after Discharge Diet after Discharge: Cardiac Contacting the DR. after DC Call your doctor for: Follow-Up Follow up with: PCP within 2 weeks of discharge Follow Up With: Oncologist as needed or as scheduled MAXIM TOPETE MD Jul 12, 2021 15:29
--- NOTE | 2021-07-12 19:05 | NUR ---
Discharge Note: LULY MCGILL [facility] Discharge instructions and discharge home medications reviewed with Patient and a copy given. All questions have been answered and understanding verbalized. The following instructions and handouts were given: neutropenia, hemorrhoids, malnutrition, pantoprazole IV discontinued, no complications Patient discharged to home with self care. All belongings taken home with patient.
--- NOTE | 2021-07-23 16:15 | PDOC3 ---
[facility]-Discharge Summary Date of Admission: Date of Admission: Jul 09, 2021 Date of Discharge: Date of Discharge: Jul 12, 2021 Discharge Diagnosis: Discharge Diagnosis: lethargy, weakness, SIRS, septic shock Neutropenic fever Pancytopenia Hypotension rectal pain, constipation and hemorrhoid pain Hypokalemia, Severe protein malnutrition Status post chemotherapy for breast cancer, triple negative Anemia of chronic disease Consults: Consults: Heme/onc: Discussed with oncology. Recommended for patient to f/u with primary oncologist. ONce patient was afebrile and WBC was improving to greater than 0.5, OK for discharge. Hospital Course: Hospital Course: 70 year old female admit with weakness and lethargy She has a history of left breast cancer currently on chemo plus treatment 9 days ago who presents to the ED today. she reports lumpectomy surgery and triple negattive status of her cancer. today she has shortness of breath, poor appetite, generalized headache, generalized chest pain. she is hungry as she hasnt eaten much today besides oatmeal and would like some spicy or stateless food. She has lost 10 lbs unintentionally with her cancer due to poo rintake these recent symptoms for 3 days. Denies any fever, she doesnt think she could have COVID becuase she has been careful and is vaccinated, but has mult appts at Cancer center was very cold this AM, she reports this is usual for her after chemo, but temp 100.3, white count still terrible, got neupogen last week, will consutl heme, may benefit from other dose, cefepime started bowel regimen and roid cream and tucks pads 07/11/2021 No acute events overnight. Afebrile in last 24 hours. WBC increased to 0.5. Patient still on Neupogen. Patient was started on cefepime. Pending oncology evaluation. Continue with ibuprofen for hemorrhoidal pain. Patient's chart, labs, images were reviewed and discussed with RN In addition to my E/M visit, advance care planning done with A total time of 20 minutes was spent from 12:00 to 1230 face to face in discussion with the patient regarding their goals of care, CODE STATUS. 07/12/2021 No acute events overnight. Patient afebrile last 24 hours. WBC improved to 1.5. Continues to have hemorrhoidal pain not improved. Oncology consulted and pending evaluation. Phosphorus is low at 1.3 will replace with sodium phosphate. Patient's chart, labs, images were reviewed and discussed with RN Disposition: Disposition/Orders: D/C to Home Activity: Activity: Resume previous activity Diet: Diet: Regular Medications: Home Meds Active Scripts Hydrocortisone (PROCTOSOL-HC) 28.35 Gm Cream..g., 1 MICHAEL RC PRN Q6HRS PRN for RECTAL PAIN for 14 Days, #1 BOTTLE Prov:MAXIM TOPETE MD 07/12/21 Pantoprazole Sodium (PANTOPRAZOLE SODIUM ) 40 Mg Tablet.dr, 40 MG PO DAILYAC for gi protection if taking ibupro for 30 Days, #30 TAB.SR Prov:MAXIM TOPETE MD 07/12/21 Scheduled Pantoprazole Sodium (Pantoprazole Sodium ), 40 MG PO DAILYAC Scheduled PRN Hydrocortisone (Proctosol-Hc), 1 MICHAEL RC PRN Q6HRS PRN for RECTAL PAIN Total Time: Total Time: Total time spent was 32 minutes in preparing scripts, discharge planning with SW and RN, and preparing this discharge summary. Patient seen and examined on day of discharge. Justicifation of Admission Dx: Justifications for Admission: Justification of Admission Dx: Yes Sepsis: Febrile Neutropenia MAXIM TOPETE MD Jul 23, 2021 16:15
== END 2021-07-12 18:45 | disposition home or self-care (01) | DRG 871 ==
LOC: ER 12:33 → ED HOLD 13:55 → 6 SOUTH 15:14
PROVIDERS: ADMIT Internal Medicine; ATTEND Internal Medicine
PROC: 5A09357 Assistance with Respiratory Ventilation, Less than 24 Consecutive Hours, Continuous Positive Airway Pressure (ICD-10-PCS; principal; 2021-07-09)
PROC: 5A09357 Assistance with Respiratory Ventilation, Less than 24 Consecutive Hours, Continuous Positive Airway Pressure (ICD-10-PCS; 2021-07-10)
DX: A41.9 Sepsis, unspecified organism (principal); E43 Unspecified severe protein-calorie malnutrition; R65.21 Severe sepsis with septic shock; D61.818 Other pancytopenia; D63.8 Anemia in other chronic diseases classified elsewhere; E03.9 Hypothyroidism, unspecified; E87.6 Hypokalemia; K59.00 Constipation, unspecified; K64.9 Unspecified hemorrhoids; C50.912 Malignant neoplasm of unspecified site of left female breast; Z20.822 Contact with and (suspected) exposure to COVID-19; Z68.20 Body mass index [BMI] 20.0-20.9, adult; Z17.1 Estrogen receptor negative status [ER-]; Z90.710 Acquired absence of both cervix and uterus; Z92.21 Personal history of antineoplastic chemotherapy; Z88.5 Allergy status to narcotic agent
CPT/HCPCS: 36415; 71275; 80048; 80053; 81001; 82553; 83605; 83735; 83880; 84100; 84145; 84484; 85025; 87040; 87426; 93005; J0692; J1442; J1650; J3010; J7030; J7050; Q9967; U0003; U0005; 99285-25; G0378